=== PATIENT | female | born 1985 | race Caucasian/White ===

== ENCOUNTER 2017-07-07 02:56 | Inpatient (IN) | payer MEDICAID ==
[~2017-07-07] VITALS: Ht 172.7 cm; Wt 63.5 kg
[2017-07-07] MEDS ORDERED: DEXT 5%/LR + PITOCIN 20UNITS/L 1,000 ML IV SCH ×2 (03:36→09:15)
[2017-07-07] MEDS ORDERED: BUTORPHANOL TARTRATE 2 MG/ML VIAL IV PRN (03:45)
[2017-07-07] MEDS ORDERED: MISOPROSTOL 100MCG TABLET VG SCH (03:45)
[2017-07-07] MEDS ORDERED: METHYLERGONOVINE MALEATE 0.2 MG/ML IM PRN (03:45)
[2017-07-07] MEDS ORDERED: CARBOPROST TROMETHAMINE 250 MCG/ML AMPUL IM PRN (03:45)
[2017-07-07] MEDS ORDERED: LIDOCAINE HCL 1% 20ML VIAL (Pyxis) INJ INFIL SCH (03:45)
[2017-07-07] MEDS ORDERED: NALOXONE HCL 0.4 MG/ML 1ML VIAL IM PRN (03:45)
[2017-07-07] MEDS: LACTATED RINGERS 1,000 ML IV SCH ×2 (04:20→05:04)
[2017-07-07] MEDS ORDERED: CLINDAMYCIN 900 MG in DEXTROSE 5% WATER 50 ML IV SCH (04:30)
[2017-07-07] MEDS ORDERED: BUPIVACAINE HCL/NS/PF EPIDURAL 100 ML EP SCH (04:45)
[2017-07-07] MEDS ORDERED: BUPIVACAINE HCL/PF 0.25% (2.5MG/ML) 10ML ONE (04:46)
[2017-07-07] MEDS ORDERED: FENTANYL CITRATE/PF 50MCG/ML 5ML VIAL ONE (04:46)
[2017-07-07] MEDS ORDERED: BUPIVACAINE HCL/NS/PF EPIDURAL 100 ML EP ONE (04:47)
[2017-07-07 05:23] LABS: BASOPHILS % 0.5 % (0.0-2.0); EOSINOPHILS % 2.4 % (0.0-5.0); HEMATOCRIT. 21.4 % (36.0-48.0); LYMPHOCYTES % 18.9 % (20.0-50.0); MEAN CORPUSCULAR HEMOGLOBIN 25.7 pg (28.0-32.0); MONOCYTES % 7.9 % (2.0-8.0); NEUTROPHILS % 70.3 % (40.0-76.0); PLATELET 126 x1000/uL (130-400); RED BLOOD CELL COUNT 2.61 mill/uL (4.2-5.4); RED CELL DISTRIBUTION WIDTH 17.4 % (11.6-14.6)
[2017-07-07 05:30] LABS: HEMOGLOBIN. 6.7 g/dL (12.0-16.0); INR 0.9; PARTIAL THROMBOPLASTIN TIME 23.4 sec (23.4-31.0); PROTHROMBIN TIME 9.6 sec (9.4-11.6)
[2017-07-07 07:36] LABS: CLARITY URINE CLEAR (CLEAR); COLOR URINE YELLOW (YELLOW); KETONES URINE NEGATIVE (NEGATIVE); LEUKOCYTE ESTERASE URINE NEGATIVE (NEGATIVE); NITRITE URINE NEGATIVE (NEGATIVE); OCCULT BLOOD URINE NEGATIVE (NEGATIVE); PROTEIN URINE 2+ (NEGATIVE); SPECIFIC GRAVITY URINE 1.023 (1.005-1.030)
[2017-07-07 07:42] LABS: D-DIMER 2.38 mg/L FEU (<0.50)
[2017-07-07 07:57] LABS: CHLORIDE 108 mEq/L (98-107)
[2017-07-07 08:07] LABS: CARBON DIOXIDE 25 mEq/L (21-32)
[2017-07-07 08:13] LABS: *BARBITURATES SCREEN URINE NEGATIVE (NEGATIVE); *BENZODIAZEPINES SCREEN URINE NEGATIVE (NEGATIVE); *COCAINE SCREEN URINE NEGATIVE (NEGATIVE); METHADONE URINE SCREEN NEGATIVE (NEGATIVE); OPIATES URINE SCREEN NEGATIVE (NEGATIVE); PHENCYCLIDINE URINE SCREEN NEGATIVE (NEGATIVE)
[2017-07-07] MEDS ORDERED: PNEUMOCOCCAL 23-VAL P-SAC VAC 0.5 ML IM ONE (08:15)
[2017-07-07] MEDS ORDERED: INFLUENZA VIRUS VACCINE 0.5ML SYR IM ONE (08:15)
[2017-07-07 08:24] LABS: *AMPHETAMINES SCREEN URINE PRESUMTIVE POSITIVE (NEGATIVE); CANNABINOID URINE SCREEN PRESUMTIVE POSITIVE (NEGATIVE)
[2017-07-07] MEDS ORDERED: DIPHENHYDRAMINE 25MG CAPSULE PO PRN (09:15)
[2017-07-07] MEDS ORDERED: RHO(D) IMMUNE GLOBULIN 300 MCG/SYR IM PRN (09:15)
[2017-07-07] MEDS ORDERED: IBUPROFEN 400MG TABLET PO PRN (09:15)
[2017-07-07 11:45] VITALS: BP 126/77
[2017-07-07 13:35] LABS: RUBELLA IGG 18.6 IU/mL (4.99-10)
[2017-07-07 13:40] LABS: HEPATITIS B SURFACE ANTIGEN NEGATIVE
[2017-07-07 16:22] VITALS: BP 119/78
[2017-07-07 20:00] VITALS: BP 133/88
[2017-07-07] MEDS: DOCUSATE SODIUM 100MG CAPSULE PO SCH (21:47)
[2017-07-08] VITALS: BP 134/81
[2017-07-08] MEDS: IBUPROFEN 800MG TABLET PO PRN ×2 (01:54→09:29)
[2017-07-08 04:00] VITALS: BP 140/82
[2017-07-08 08:30] VITALS: BP 107/85
[2017-07-08] MEDS ORDERED: PRENATAL VIT/FE FUMARATE/FA TABLET PO SCH (09:00)
[2017-07-08 10:43] LABS: BASOPHILS % 0.5 % (0.0-2.0); EOSINOPHILS % 2.6 % (0.0-5.0); MEAN CORPUSCULAR HEMOGLOBIN 26.7 pg (28.0-32.0); MEAN CORPUSCULAR VOLUME 81.9 fL (81.0-99.0); MEAN PLATELET VOLUME 8.6 fl (7.4-10.4); MONOCYTES % 6.2 % (2.0-8.0); NEUTROPHILS % 73.7 % (40.0-76.0); PLATELET 117 x1000/uL (130-400); RED BLOOD CELL COUNT 2.51 mill/uL (4.2-5.4); RED CELL DISTRIBUTION WIDTH 17.3 % (11.6-14.6)
[2017-07-08 10:48] LABS: HEMATOCRIT. 20.5 % (36.0-48.0); HEMOGLOBIN. 6.7 g/dL (12.0-16.0)
[2017-07-08 16:11] VITALS: BP 129/89
[2017-07-08 20:45] VITALS: BP 140/91
[2017-07-08] MEDS: DOCUSATE SODIUM 100MG CAPSULE PO SCH (21:53)
[2017-07-09 08:15] VITALS: BP 133/86
[2017-07-15 04:16] LABS: AMPHETAMINE CONF URINE Positive (.); CANNABINOID CONFIRMATION URINE Positive (.)
== END 2017-07-09 15:15 | disposition home or self-care (01) | DRG 560 ==
LOC: L&D 02:56 → OBSVTOIN 02:56 → 7EST PP/OB 10:48
PROVIDERS: ADMIT Obstetrics & Gynecology; ATTEND Obstetrics & Gynecology
PROC: 3E0R3BZ Introduction of Anesthetic Agent into Spinal Canal, Percutaneous Approach (ICD-10-PCS; 2017-07-07)
PROC: 00HU33Z Insertion of Infusion Device into Spinal Canal, Percutaneous Approach (ICD-10-PCS; 2017-07-07)
PROC: 30233S1 Transfusion of Nonautologous Globulin into Peripheral Vein, Percutaneous Approach (ICD-10-PCS; 2017-07-07)
PROC: 10E0XZZ Delivery of Products of Conception, External Approach (ICD-10-PCS; principal; 2017-07-07 11:49)
DX: O13.4 Gestational [pregnancy-induced] hypertension without significant proteinuria, complicating childbirth (principal); D62 Acute posthemorrhagic anemia; O90.81 Anemia of the puerperium; O77.0 Labor and delivery complicated by meconium in amniotic fluid; O48.0 Post-term pregnancy; Z3A.40 40 weeks gestation of pregnancy; Z37.0 Single live birth; Z88.6 Allergy status to analgesic agent; Z88.0 Allergy status to penicillin; Z88.8 Allergy status to other drugs, medicaments and biological substances
CPT/HCPCS: 36415; 80053; 80305; 80307; 80349; 80359; 81001; 84550; 85025; 85379; 85384; 85610; 85730; 86592; 86703; 86762; 86850; 86886; 86900; 87340; 90384; J0595; J2590; J3010; J3490; J7060; J7120; A4315

== ENCOUNTER 2021-04-02 14:20 | Emergency (ER) | payer MEDICAID ==
[~2021-04-02] VITALS: Ht 160 cm; Wt 55.0 kg
[2021-04-02 14:45] VITALS: BP 116/81
== END 2021-04-02 15:30 | disposition home or self-care (01) ==
LOC: ER 14:29
DX: F43.23 Adjustment disorder with mixed anxiety and depressed mood (principal); Z88.0 Allergy status to penicillin; Z86.59 Personal history of other mental and behavioral disorders
CPT/HCPCS: 99283

== ENCOUNTER 2022-11-02 18:47 | Emergency (ER) | payer MEDICAID ==
[~2022-11-02] VITALS: Ht 167.6 cm; Wt 59.0 kg
[2022-11-02 18:52] VITALS: BP 172/123
== END 2022-11-02 20:00 | disposition left against medical advice (07) ==
LOC: ER 18:47
DX: R42 Dizziness and giddiness (principal); Z88.0 Allergy status to penicillin; Z86.59 Personal history of other mental and behavioral disorders
CPT/HCPCS: 99283